=== PATIENT | male | born 1970 | race Caucasian/White ===

== ENCOUNTER → 2019-03-10 | Outpatient (CLI) | payer BC ==
[~2019-03-10] MED LIST: REGADENOSON 0.4 MG/5 ML DISP.SYRIN. IV ONE
--- NOTE | 2019-03-12 11:22 | PCVCIMAG ---
APPROVED REPORT Imaging Protocol: Rest Tc-99m/Stress Tc-99m 1 day Study performed: 03/10/2019 09:28:15 Indication: CAD Patient Location: Out-Patient Stress Nurse: Nicole Ball RN, Heather Oswald RN AL Tech:Rosa Morales [facility] Ht: 5 ft 9 in Wt: 235 lbs BSA: 2.21 m2 HR: 88 bpm BP: 130/68 mmHg BMI: 34.69 Medical History Medical History: Hyperlipidemia, Current Smoker Medications: ASA, Atorvastatin, Lisinopril, Metoprolol, Effient Allergies: No known drug allergies Cardiac Risk Factors: Age Previous Cardiac Procedures: 2012 & 2014 PCI Pretest Chest Pain Characteristics: No chest pain Exercise History: Physically active Resting Data Rest SPECT myocardial perfusion imaging was performed in supine position 45 minutes following the intravenous injection of 10.2 mCi of Tc-99m Sestamibi. Time of rest injection: 0850 Date: 03/10/2019 Administration Route: IV Administration Site: Right Hand Pharmacologic Stress Pharmacologic stress test was performed by injecting Regadenoson 0.4 mg IV push over 10-15 seconds immediately followed by the intravenous injection of 34 mCi of Tc-99m Sestamibi. Time of stress injection: 1015 Date: 03/10/2019 Administration Route: IV Administration Site: Right Hand Gated Stress SPECT was performed 45 minutes after stress injection. The images were gated to evaluate regional wall motion and calculate left ventricular ejection fraction. Stress Test Details Stress Test: Pharmacologic stress was paired with low level exercise. Reason for pharmacologic stress test: unable to complete adeel protocol. HRMax Heart Rate (APMHR): 171 bpm Resting HR: 88 bpmTarget HR (85% APMHR): 145 bpm Max HR Achieved: 108 bpm % of APMHR: 63 Recovery HR: 89 bpm BP Resting BP: 130/68 mmHg Max BP: 134/62 mmHg Recovery BP: 148/59 mmHg ECG Resting ECG: Sinus Rhythm Stress ECG: Sinus Tachycardia Arrhythmia: None Recovery ECG: Sinus Rhythm Clinical Reason for Termination: Completed protocol Stress Symptoms: Dyspnea, Leg Heaviness Exercise duration: 4 min 00 sec Exercise capacity: 1.6 METs Symptoms resolved with caffeine. Nurse Comments Attempted Adeel protocol. Submaximal Heart Rate Stress ECG Conclusion 1. adequate response to iv lexiscan 2. inadequate heart rate for ecg diagnosis Study Data Post stress, the left ventricular ejection was 66%.. SSS: 3 SRS: 1 SDS: 2 TID = 1.10. Perfusion There is a medium area of moderately reduced uptake in the basal and mid segment of the anteroseptal wall which is seen on the stress images and improves on the resting images. This area thickens and moves normally and is most consistent with ischemia. Wall Motion Normal left ventricular wall motion. Nuclear Conclusion ECG Findings: non-diagnostic Clinical Findings: negative for ischemia Nuclear Findings: positive for ischemia Exercise Capacity: not assessed Left Ventricular Function: normal 1. high risk study based on evidence of inducible ischemia involving anteroseptal wall 2.post stress lvef 66% <Conclusion> 1. adequate response to iv lexiscan 2. inadequate heart rate for ecg diagnosis
== END | disposition home or self-care (01) ==
LOC: PCVCIMAG 09:25
PROVIDERS: ATTEND Internal Medicine
DX: I25.10 Atherosclerotic heart disease of native coronary artery without angina pectoris (principal)
CPT/HCPCS: 78452; 93017; A9500; J2785